=== PATIENT | female | born 1990 | race Caucasian/White ===

== ENCOUNTER → 2021-11-10 | Outpatient (CLI) | payer OTHER, SELFPAY ==
[2021-11-10 12:26] LABS: Amphetamine Urine VISTA NEGATIVE (<1000 ng/mL); Barbiturate Urine VISTA NEGATIVE (< 200 ng/mL); Benzodiazepine Urine VISTA NEGATIVE (< 200 ng/mL); Cocaine Urine VISTA NEGATIVE (< 300 ng/mL); Ecstacy Urine VISTA NEGATIVE (< 500 ng/mL); Methadone Urine VISTA NEGATIVE (< 300 ng/mL); PCP Urine VISTA NEGATIVE (< 25 ng/mL); THC Urine VISTA NEGATIVE (< 50 ng/mL); Vista UDS pH Range 7
[2021-11-11 22:06] LABS: Chlamydia By Nucleic Acid AMP Negative (Negative)
[2021-11-11 22:11] LABS: Gonococcus By Nucleic Acid AMP Negative (Negative)
== END | disposition home or self-care (01) ==
LOC: LABSPEC 11:51
PROVIDERS: Referring Provider Obstetrics & Gynecology; Visit Provider Obstetrics & Gynecology
DX: Z34.90 Encounter for supervision of normal pregnancy, unspecified, unspecified trimester (principal)
CPT/HCPCS: 80307; 87086; 87088; 87491; 87591

== ENCOUNTER → 2021-12-02 | Outpatient (CLI) | payer OTHER, SELFPAY ==
[2021-12-02 11:38] LABS: Absolute Lymphocyte Count 2.43 X10^3/uL (0.83-4.51); Absolute Neutrophil Count 9.5 X10^3/uL (2.0-7.7); Basophil# 0.03 X10^3/uL; Basophil% 0.2 % (0-1); Eosinophil# 0.17 X10^3/uL; Eosinophils% 1.3 % (0-5); Hematocrit 39.1 % (37-47); Hemoglobin 12.4 g/dL (12.0-15.0); Lymphocyte # 2.43 X10^3/ul (0.83-4.51); Mean Corp Hgb Conc 31.7 g/dL (32-36); Mean Corpuscular Hgb 26.6 pg (27.0-32.0); Mean Corpuscular Volume 83.7 fL (81-99); Mean Platelet Vol. 11.7 fl (6.2-12.0); Monocyte# 0.59 X10^3/uL; Monocyte% 4.6 % (0-10); NRBC Flagged by Analyzer 0 % (0-5); Neutrophil # 9.49 X10^3/uL (2.7-7.7); Neutrophil % 74.4 % (47-70); Platelet Count 321 K/mm3 (150-450); RBC Distribution Width CV 14.9 % (11.6-14.6); RBC Distribution Width SD 45.1 fl (35.1-43.9); Red Blood Count 4.67 M/mm3 (4.2-5.4); White Blood Count 12.8 K/mm3 (4.4-11.0)
[2021-12-02 12:43] LABS: HIV - WCH Non-Reactive (Nonreactive); Hepatitis B Surface Antigen Non-Reactive (Nonreactive); Hepatitis C Antibody Non-Reactive (Nonreactive); Rubella IgG Reactive (Nonreactive); Syphilis Antibodies Non-reactive
== END | disposition home or self-care (01) ==
LOC: LAB 09:46
PROVIDERS: Referring Provider Obstetrics & Gynecology; Visit Provider Obstetrics & Gynecology
DX: Z34.90 Encounter for supervision of normal pregnancy, unspecified, unspecified trimester (principal)
CPT/HCPCS: 36415; 85025; 86703; 86762; 86780; 86803; 86850; 86900; 86901; 87340

== ENCOUNTER 2022-02-27 09:35 | Outpatient (CLI) | payer OTHER, SELFPAY ==
[2022-02-27 10:16] LABS: Absolute Lymphocyte Count 2.01 X10^3/uL (0.83-4.51); Absolute Neutrophil Count 11.3 X10^3/uL (2.0-7.7); Basophil# 0.03 X10^3/uL; Basophil% 0.2 % (0-1); Eosinophils% 1.4 % (0-5); Hematocrit 35.4 % (37-47); Hemoglobin 11.8 g/dL (12.0-15.0); Lymphocyte # 2.01 X10^3/ul (0.83-4.51); Lymphocyte % 14.2 % (19-41); Mean Corp Hgb Conc 33.3 g/dL (32-36); Mean Corpuscular Hgb 29.1 pg (27.0-32.0); Mean Corpuscular Volume 87.4 fL (81-99); Mean Platelet Vol. 11.3 fl (6.2-12.0); Monocyte# 0.54 X10^3/uL; Monocyte% 3.8 % (0-10); NRBC Flagged by Analyzer 0 % (0-5); Neutrophil # 11.31 X10^3/uL (2.7-7.7); Neutrophil % 79.7 % (47-70); Platelet Count 289 K/mm3 (150-450); RBC Distribution Width CV 14.1 % (11.6-14.6); RBC Distribution Width SD 45.1 fl (35.1-43.9); Red Blood Count 4.05 M/mm3 (4.2-5.4); White Blood Count 14.2 K/mm3 (4.4-11.0)
[2022-02-27 10:35] LABS: Glucose Challenge Gest 1H 50g 131 mg/dL (70-140)
== END 2022-02-27 23:59 | disposition home or self-care (01) ==
PROVIDERS: Referring Provider Obstetrics & Gynecology; Visit Provider Obstetrics & Gynecology
DX: Z34.90 Encounter for supervision of normal pregnancy, unspecified, unspecified trimester (principal)
CPT/HCPCS: 36415; 82950; 85025

== ENCOUNTER → 2022-05-08 | Outpatient (CLI) | payer OTHER, SELFPAY ==
--- NOTE | 2022-05-08 14:23 | US_ITS ---
STUDY: SECOND AND THIRD TRIMESTER OBSTETRICAL ULTRASOUND - LIMITED REASON FOR EXAM: Female, 31 years old well being -- WILLIAM LMP: 09/09/2021. PRIOR ULTRASOUND: None. TECHNIQUE: Transabdominal TECHNICAL QUALITY: Adequate. FINDINGS: There is a single intrauterine fetus. The fetus is in a breech presentation. There is demonstrated cardiac activity with a heart rate of 153 bpm. There is a normal amniotic fluid volume. The largest amniotic fluid pocket measures cm. The amniotic fluid index (WILLIAM) is 7.5 cm. The placenta is 18.7 There are Grade 2 placental changes. The cervix measures 3.3 cm in length. BIOMETRY: Age by LMP: 34 weeks, 3 days. SHABANA by LMP: 06/29/2022. US/OB Limited (No Biometrics) IMPRESSION: Normal amniotic fluid index. Electronically Signed: Abraham Mar MD at 9:12 EST ,
== END | disposition home or self-care (01) ==
PROVIDERS: Referring Provider Obstetrics & Gynecology; Visit Provider Obstetrics & Gynecology
DX: O26.899 Other specified pregnancy related conditions, unspecified trimester (principal); R10.2 Pelvic and perineal pain; O36.8190 Decreased fetal movements, unspecified trimester, not applicable or unspecified
CPT/HCPCS: 76815; 87086; 87088

== ENCOUNTER → 2022-05-24 | Outpatient (CLI) | payer OTHER, SELFPAY | END | disposition home or self-care (01) | LOC: LABSPEC 15:19 | PROVIDERS: Referring Provider Obstetrics & Gynecology; Visit Provider Obstetrics & Gynecology | DX: Z34.90 Encounter for supervision of normal pregnancy, unspecified, unspecified trimester (principal) | CPT/HCPCS: 87081 ==

== ENCOUNTER → 2022-05-31 | Outpatient (CLI) | payer OTHER, SELFPAY ==
--- NOTE | 2022-05-31 | US_ITS ---
STUDY: OBSTETRICAL ULTRASOUND - BIOPHYSICAL PROFILE REASON FOR EXAM: Female, 31 years old minimal variability with dec FM LMP: 09/09/2021. PRIOR ULTRASOUND: Comparison is made with prior study dated 05/08/2022. TECHNIQUE: Transabdominal TECHNICAL QUALITY: Adequate. FINDINGS: There is a single intrauterine fetus. The fetus is in a cephalic presentation. There is demonstrated cardiac activity with a heart rate of 163 bpm. There is a normal amniotic fluid volume. The largest amniotic fluid pocket measures 8.0 cm. The amniotic fluid index (WILLIAM) is 20.09 cm. The placenta is anterior in location and is not low lying. There are Grade 3 placental changes. Age by LMP: 37 weeks, 5 days. SHABANA by LMP: 06/16/2022. BIOPHYSICAL PROFILE: Breathing Movements (FBM): 2 Gross Body Movements (GBM): 2 Tone (FT): 2 Amniotic Fluid Volume (AFV): 2 TOTAL SCORE: 8 / 8 US/Biophysical Prof W/O Non Stres IMPRESSION: Normal biophysical profile of 8/8. Electronically Signed: Abraham Mar MD at 15:45 EST ,
== END | disposition home or self-care (01) ==
PROVIDERS: Visit Provider Registered Nurse
DX: O36.8190 Decreased fetal movements, unspecified trimester, not applicable or unspecified (principal)
CPT/HCPCS: 76819

== ENCOUNTER 2022-06-12 07:07 | Inpatient (IN) | payer OTHER, SELFPAY ==
[2022-06-12] VITALS (49 sets, daily range): BP systolic 110–152; BP diastolic 51–101; PULSE 94–185; TEMP 36.4–36.7; O2SAT 79–100; BMI 30.4
[2022-06-12] MEDS: Lactated Ringers 1,000 ML 50 ML IV (07:40)
[2022-06-12 08:03] LABS: Absolute Lymphocyte Count 2.69 X10^3/uL (0.83-4.51); Absolute Neutrophil Count 11.5 X10^3/uL (2.0-7.7); Basophil# 0.05 X10^3/uL; Basophil% 0.3 % (0-1); Eosinophil# 0.18 X10^3/uL; Eosinophils% 1.2 % (0-5); Hematocrit 38.3 % (37-47); Lymphocyte # 2.69 X10^3/ul (0.83-4.51); Lymphocyte % 17.4 % (19-41); Mean Corp Hgb Conc 31.3 g/dL (32-36); Mean Corpuscular Hgb 27.6 pg (27.0-32.0); Mean Platelet Vol. 12.9 fl (6.2-12.0); Monocyte# 0.88 X10^3/uL; Monocyte% 5.7 % (0-10); NRBC Flagged by Analyzer 0 % (0-5); Neutrophil # 11.54 X10^3/uL (2.7-7.7); Neutrophil % 74.7 % (47-70); POSITIVE COUNT YES; RBC Distribution Width CV 14.7 % (11.6-14.6); RBC Distribution Width SD 47.3 fl (35.1-43.9); Red Blood Count 4.35 M/mm3 (4.2-5.4); White Blood Count 15.5 K/mm3 (4.4-11.0)
[2022-06-12 08:27] LABS: Differential Indicated SCAN CRITERIA MET
--- NOTE | 2022-06-12 08:31 | HP.PCM.OB_ITS ---
HPI - General General Date of Admission: 06/12/22 HPI Narrative IRMA SIERRA, is a 31 F who presents at 39.3 for elective IOL. some ctx overnight, no lof, vb. good fm. normal course. GBS negative. Maternal Data Information SHABANA Calculator Estimated Delivery Date Method Current WG Current Estimate 06/16/22 LMP (Certain) 39w 3d PFSH PFSH Medical History Abnormal Pap smear of cervix History of placenta abruption Home Medications PNV-iron 29 mg-folic acid 1 mg-omega3 250 mg-dha 200mg oral combo pack pkg PO 11/07/21 [History Last Taken Unknown] Allergy/AdvReac Type Severity Reaction Status Date / Time No Known Allergies Allergy Verified 06/05/22 11:06 Family History Grandmother Heart disease Hypertension Diabetes Grandfather Lung cancer Social History adopted: No household members: spouse and children housing: house number of children: 4 current occupational status: unemployed pets and animals: Yes pets and animals: dog(s) history of recent travel: No sexually active: Yes Smoking Status: Never smoker alcohol intake: former details: socially - not currently well-balanced diet: daily or most days caffeine: No eating out: rarely or never during the past year weight has: remained stable what type of physical activity do you participate in: walking ida/zoroastrian: Lutheran seatbelt use: always do you feel safe at home: Yes additional social history: Diana Spouse-PC Jean Carlos History 5 Elective abortions Hx Para 4 Spontaneous abortions Hx # Term Pregnancies Ectopic pregnancies Hx # Pregnancies Multiple births # of living children 4 Past Pregnancies Del. Date Name GA/Weeks Outcome Route Bth Weight Infant Gen Labor Lgth Anesthesia Del Locatn Provider NII Unknown 08/12/10 Randal 39 live - full term 7#1oz Male epidural [place] Walter Unknown 05/22/12 Frank 37 live - 6# Female epidural [place] Walter Unknown 04/15/15 Yaron 38 live - full term 6# 1oz Male epidural lashay Miller Unknown 11/06/17 Savvy 39 live - full term 6# Female epidural Alona GRANGER Diana Visit Details Expected Delivery Route/Plan labor Preferences- CB/BF classes: declines labor support person: diana labor intervention preferences: no induction if possible pain management options preferred: open mind cut cord/dad catch: diana to cut cord only, may be open to catch baby. Irma : planning breast feeding PP control planned: none discussed possible routes of delivery and associated risks: [] special requests: [] Plans Covid status: unvaccinated, had covid 2020 () Flu vaccine: unvaccinated Tdap vaccine: discussed and declines Rhogam: n/a LARC form signed: completed movement and labor precautions reviewed. Problem list reviewed and updated with the most current plan of care details and appropriate orders placed. Relevant counseling for the gestational age provided. Continue routine care and follow up unless otherwise noted in visit notes/problem list details OB Flowsheet Initial Weight: Not Recorded Date -?-?-?-?-?-?-?-?-?-?-?-?- EGA Weight BP Urine Prot -?-?-?-?-?-?-?-?-?-?-?-?- Glucose FHR FuHt Pres Dilation -?-?-?-?-?-?-?-?-?-?-?-?- Effaced St Visit Note 12/07/21 -?-?-?-?-?-?-?-?-?-?-?-?- 12w 5d 177 lb 124/80 Negative -?-?-?-?-?-?-?-?-?-?-?-?- Negative 168 -?-?-?-?-?-?-?-?-?-?-?-?- JV- no spotting or cramping. CRL consistent with LMP as it was last visit. 01/02/22 -?-?-?-?-?-?-?-?-?-?-?-?- 16w 3d 177 lb 8 oz 107/72 Nega tive -?-?-?-?-?-?-?-?-?-?-?-?- Negative 150 -?-?-?-?-?-?-?-?-?-?-?-?- JV- no lof, vagi nal bleeding, or cramping. anatomy scan ordered and breast pump rx filled out. 02/03/22 -?-?--?-?-?-?-?-?-?-?-?-?- 21w 0d 180 lb 129/79 Negative -?-?-?-?-?-?-?-?-?-?-?-?- Negative 155 -?-?-?-?-?-?-?-?-?-?-?-?- JV- no lof, vagi nal bleeding, or cramping. has anteior placenta and not feeling movement often 02/27/22 -?-?-?-?-?-?-?-?-?-?-?-?- 24w 3d 181 lb 8 oz 111/77 Trac e -?-?-?-?-?-?-?-?-?-?-?-?- Negative 135 24 -?-?-?-?-?-?-?-?-?-?-?-?- LC-normal anatom y. no vb/ctx. having sciatic pain-stretches/interventions reviewed. LC-normal anatomy. no vb/ctx . having sciatic pain-stretches/interventions reviewed. normal 28 week labs. 03/27/22 -?-?-?-?-?-?-?-?-?-?-?-?- 28w 3d 181 lb 4 oz 116/65 Nega tive -?-?-?-?-?-?-?-?-?-?-?-?- Negative 140 28 -?-?-?-?-?-?-?-?-?-?-?-?- LC- no lof/vb/ct x. good fm. declines tdap. larc signed. 04/14/22 -?-?-?-?-?-?-?-?-?-?-?-?- 31w 0d 183 lb 113/75 Negative -?-?-?-?-?-?-?-?-?-?-?-?- Negative 140 31 -?-?-?-?-?-?-?-?-?-?-?-?- SM- no vb lof go od fm no regular ctx 04/17/22 -?-?-?-?-?-?-?-?-?-?-?-?- 31w 3d 186 lb 6 oz 124/82 Nega tive -?-?-?-?-?-?-?-?-?-?-?-?- Negative 136 31 -?-?-?-?-?-?-?-?-?-?-?-?- -work in for v ag burning and itching. Monistat increased burning. Exam c/w yeast. 1 tab fluconazole. 04/24/22 -?-?-?-?-?-?-?-?-?-?-?-?- 32w 3d 184 lb 2 oz 137/83 Nega tive -?-?-?-?-?-?-?-?-?-?-?-?- Negative 140 34 Cephalic -?-?-?-?-?-?-?-?-?-?-?-?- SM- no vb lof go od fm no regular ctx didn't take diflucan willing to take vaginal 05/08/22 -?-?-?-?-?-?-?-?-?-?-?-?- 34w 3d 183 lb 113/74 Negative -?-?-?-?-?-?-?-?-?-?-?-?- Negative 140 34 Cephalic 1 .5 -?-?-?--?-?-?-?-?-?-?-?-?- SM- dec fm not feeling well today irregular ctx and passed mucous plug, a and culture sent, NST 05/15/22 -?-?-?-?-?-?-?-?-?-?-?-?- 35w 3d 186 lb 112/78 Negative -?-?-?-?-?-?-?-?-?-?-?-?- Negative 140 35 Cephalic 1 .5 -?-?-?-?-?-?-?-?-?-?-?-?- - SM- vtx on US today no vb lof good fm irregular ctx no cervical change 05/24/22 -?-?-?-?-?-?-?-?-?-?-?-?- 36w 5d 188 lb 2 oz 119/83 Nega tive -?-?-?-?-?-?-?-?-?-?-?-?- Negative 147 36 Cephalic 1 .5 -?-?-?-?-?-?-?-?-?-?-?-?- 50 -3 JV- JV- no lof, vaginal bleeding , or dec fm. 05/31/22 -?-?-?-?-?-?-?-?-?-?-?-?- 37w 5d 188 lb 4 oz 120/83 Nega tive -?-?-?-?-?-?-?-?-?-?-?-?- Negative 155 37 Cephalic 1 .5 -?-?-?-?-?-?-?-?-?-?-?-?- 50 -3 LC-no lof/ vb. no consistent ctx. decreased FM today. NST obtained. periods of minimal variability with variables. BPP ordered. LC-no lof/vb. no consistent ctx. decreased FM today. NST obtained. minimal variability with variables. c/w Jason Nino who concurs with BPP. 06/05/22 -?-?-?-?-?-?-?-?-?-?-?-?- 38w 3d 189 lb 2 oz 120/84 Nega tive -?-?-?-?-?-?-?-?-?-?-?-?- Negative 145 38 Cephalic 2 -?-?-?-?-?-?-?-?-?-?-?-?- 80 -3 LC- no lof /vb/ no consistent ctx. good fm. desires IOL for 39 weeks. LC- no lof/vb/ no consistent ctx. good fm. desires IOL for 39 weeks. will schedule for sunday. 06/12/22 -?-?-?-?-?-?-?-?-?-?-?-?- 39w 3d 188 lb 14.978 oz 127/84 -?-?-?-?-?-?-?-?-?-?-?-?- -?-?-?-?-?-?-?-?-?-?-?-?- NST FHR Rate Baby A Baseline: 150 Variability:: Moderate Accelerations:: 15 x 15 Decelerations:: None NST Reactive:: Yes FHR Category:: Category I Uterine Activity:: ctx q7-8 minutes, mild to palpation. ROS Cardiovascular Cardiovascular: Denies abdominal pain, chest pain, diaphoresis or dyspnea Genitourinary Genitourinary: Reports change in urinary stream Musculoskeletal Musculoskeletal: Reports none Integumentary Integumentary: Reports none Neurologic Neurologic: Reports none Psychiatric Psychiatric: Reports none Endocrine Endocrinology: Reports none Hematologic/Lymphatic Hematologic/Lymphatic: Reports none Allergic/Immunologic Allergic/Immunologic: Reports none Vital Signs Vital Signs Vital Signs: Weight Weight: 188 lb 14.978 oz Body Mass Index (BMI) 30.4 Physical Exam Const alert, oriented x3 and no apparent distress General Appearance: cooperative, comfortable and well kempt Orientation / Consciousness: awake and oriented to person Exam Limitations: no limitations HEENT normocephalic Neck full ROM Chest inspection of chest normal Resp normal respiratory effort, normal air movement and no retractions Effort and Inspection: able to speak in complete sentences and symmetric chest movement Cardio regular rate Peripheral Pulses: pulses 2+ throughout GI normal to inspection, nondistended, normoactive bowel sounds Inspection: gravid no CVA tenderness and appearance of the vagina normal External Female Exam: normal appearance of the urethra; Negative for external lesion OB / External & Speculum: external exam normal Manual OB Exam: estimated gestational size appropriate and presentation cephalic Uterus Palpation: Negative for uterus tender Extremity normal to inspection Skin no rashes or lesions noted Psych Activity / Motor Behavior: appropriate eye contact Speech: normal speech Labs Labs Labs: 2 Blood Type O POSITIVE Antibody Screen NEGATIVE Hct 38.3 % (37-47) Hgb 12.0 g/dL (12.0-15.0) Pap Smear Negative Obstetrics US Syphilis Total Ab Non-reactive Rubella IgG Antibody Reactive (Nonreactive) Hep Bs Antigen Non-Reactive (Nonreactive) Chlamydia DNA ([facility]) Negative (Negative) Neisseria gonorrhoeae DNA ([facility]) Negative (Negative) HIV 1&2 Antibody Non-Reactive (Nonreactive) Glucose 1 Hr 50 gm 131 mg/dL (70-140) Assessment & Plan (1) Encounter for elective induction of labor: COMMENT: 2.5/70/-2, soft pitocin induction PLAN: Patient presents at 39.3 for elective IOL. -upon IV placement, with vagal response, fetus with minimal variability. now with moderate variability with accelerations. Pain management:open minded GBS negative Management of any complications: none reassuring maternal and status. once 20 minutes of cat 1, start pitocin [facility] and made any clinically relevant updates. Dr. Nino updated on admission, exam and POC and agrees with midwifery management. comanagement for IOL.
[2022-06-12 08:39] LABS: Platelet Estimate ADEQUATE (ADEQ)
[2022-06-12 08:46] LABS: Syphilis Antibodies Non-reactive
[2022-06-12] MEDS: Oxytocin 15 Units/NS 250ml 15 UNITS/250 ML IV.SOLN 2 UNITS IV (09:09)
[2022-06-12 09:15] LABS: Platelet Count 197 K/mm3 (150-450)
[2022-06-12] MEDS: Ondansetron 4 MG/2 ML Vial IV (13:31)
[2022-06-12] MEDS: Lactated Ringers 1,000 ML 200 ML IV (14:06)
[2022-06-12] MEDS: LACTATED RINGERS 500 ML 999 ML IV (18:45)
[2022-06-12] MEDS: fentaNYL-bupivacaine (epidural) 100 ML BAG EPIDURAL (19:10)
--- NOTE | 2022-06-12 20:40 | EX.PCM.OBRPT ---
Assessment & Plan (1) (spontaneous vaginal delivery): COMMENT: elective IOL- , boy:CHRIS Rubi Maternal Data Information SHABANA Calculator Estimated Delivery Date Method Current WG Current Estimate 06/16/22 LMP (Certain) 39w 3d Final SHABANA Source: LMP Vaginal Delivery Maternal Presentation Maternal Presentation: Elective Induction Type of Induction: Pitocin Operative Information Date of Procedure: 06/12/22 Pre-Operative Diagnosis: Post-Operative Diagnosis: Surgery / Procedure Performed: Spontaneous Vaginal Delivery Type of Anesthesia: Epidural Estimated Blood Loss: 100 Time of Delivery: 20:23 Findings Description of Procedure: Patient began pushing and delivered the head in the OP-ROP presentation. The head was delivered atraumatically . The anterior and posterior shoulders delivered without complication followed by the rest of the infant and the infant was placed on the maternal abdomen. Delayed cord clamping was employed for approximately 60 seconds. Cord was clamped and cut and gentle traction was applied to the cord and the placenta delivered spontaneously immediately following it was noted to be intact with three-vessel cord. The perineum and vagina were inspected and noted to have no laceration. EBL was 100 cc. Patient and infant tolerated delivery well and entered recovery phase bonding skin to skin. Amniotic Membrane Rupture Type: Artificial Time of Membrane Rupture: 1250 Amniotic Fluid Description: Clear Placental Delivery Description: Spontaneous Placenta Disposition: [facility] Cord Vessel Description: 3 Vessels Cord Entanglement: None A Gender: Male (1 minute): 9 (5 minute): 9 Delayed Cord Clamping: Yes Post Vaginal Delivery Medications Given After Delivery: IV Pitocin Episiotomy Description: None Laceration: None Addendum Addendum: ATTN PERFECT BINDER OPERATOR: YANN DELIVERY
[2022-06-12] MEDS: Oxytocin 15 Units/NS 250ml 15 UNITS/250 ML IV.SOLN 83 UNITS IV (21:01)
[2022-06-12] MEDS: Naproxen 500 MG Tablet PO (21:13)
[2022-06-13] VITALS (9 sets, daily range): BP systolic 117–127; BP diastolic 58–80; PULSE 78–102; RESP 16; TEMP 36–36.9; O2SAT 97
[2022-06-13] MEDS: Naproxen 500 MG Tablet PO ×2 (06:12→14:33)
--- NOTE | 2022-06-13 07:38 | PCM.PN.OB ---
Subjective Subjective Patient doing well without complaints. Tolerating PO. Ambulating and voiding without difficulty. Feeding well. Denies chest pain, shortness of breath, calf pain/swelling, fevers, chills, lightheadedness. Objective Data Objective Data Vital Signs: Vital Signs Temp Pulse Resp BP Pulse Ox O2 Del Method 97.2 F L 100 16 117/69 97 Room Air 06/13/22 02:01 06/13/22 02:02 06/13/22 02:01 06/13/22 02:02 06/13/22 02:01 06/13/22 02:01 Oxygen Delivery Method Room Air Weight: 188 lb 14.978 oz Body Mass Index (BMI) 30.4 Intake & Output: Intake and Output for Last 24 Hours 06/11/22 06/12/22 06/13/22 23:59 23:59 23:59 Intake Total 2654.51 / 2654.51 750 / 750 Output Total 250 / 250 250 / 250 Balance 2404.51 / 2404.51 500 / 500 Lab / Micro Data Result Diagrams: 06/12/22 09:03 Labs: Laboratory Results - last 24 hr 06/12/22 07:40: WBC 15.5 H, RBC 4.35, Hgb 12.0, Hct 38.3, MCV 88.0, MCH 27.6, MCHC 31.3 L, RDW Std Deviation 47.3 H, RDW Coeff of Sabino 14.7 H, Plt Count , MPV 12.9 H, Immature Gran % (Auto) 0.700, Neut % (Auto) 74.7 H, Lymph % (Auto) 17.4 L, [place] % (Auto) 5.7, Eos % (Auto) 1.2, Baso % (Auto) 0.3, Absolute Neuts (auto) 11.5 H, Absolute Lymphs (auto) 2.69, Nucleated RBC % 0, Platelet Estimate ADEQUATE 06/12/22 07:40: Blood Type O POSITIVE, Antibody Screen NEGATIVE 06/12/22 07:40: Syphilis Total Ab Non-reactive 06/12/22 09:03: Plt Count 197 Physical Exam Const alert and oriented x3 HEENT normocephalic Eyes PERRL Neck full ROM Resp normal respiratory effort GI soft to palpation GI Narrative: FF below U Assessment & Plan (1) (spontaneous vaginal delivery): COMMENT: elective IOL- , boy:CHRIS Rubi PLAN: Plan s/p PPD # 1 1. routine post delivery care 2. breast feeding- support given 3. rh positive 4. rubella immune
[2022-06-13] MEDS: Senna/Docusate Sodium 1 Tablet PO (14:33)
[2022-06-13] MEDS: Acetaminophen 500 MG Tablet 1000 MG PO (20:50)
== END 2022-06-13 23:15 | disposition home or self-care (01) | DRG 807 ==
PROVIDERS: Admitting Provider Registered Nurse; Referring Provider Registered Nurse; Visit Provider Registered Nurse
DX: O76 Abnormality in fetal heart rate and rhythm complicating labor and delivery (principal); Z37.0 Single live birth; Z3A.39 39 weeks gestation of pregnancy
CPT/HCPCS: 59025; 59050; 85025; 85049; 86780; 86850; 86900; 86901; 99221; J7120; G0378; J2405

== ENCOUNTER → 2023-08-03 | Outpatient (CLI) | payer OTHER, SELFPAY | END | disposition home or self-care (01) | LOC: LABSPEC 13:42 | PROVIDERS: Referring Provider Registered Nurse; Visit Provider Registered Nurse | DX: Z12.4 Encounter for screening for malignant neoplasm of cervix (principal) | CPT/HCPCS: 87624; 88175; G0145 ==